=== PATIENT | female | born 1995 | race Caucasian/White ===

== ENCOUNTER 2018-05-09 21:45 | Emergency (ER) | payer SELFPAY ==
--- NOTE | 2018-05-10 04:43 | Emergency Room Report ---
History of Present Illness General Chief Complaint: To Be Triaged Medical Decision Making Diagnostic Impression: Primary Impression: gen eval ER Course Patient left prior to triage Status: unchanged Disposition: LEFT W/OUT BEING SEEN Condition: Stable Referrals: NOT CHOSEN IPA/,REFERRING (PCP) Garcia Sanon MD May 10, 2018 04:43
== END 2018-05-09 22:15 | disposition left against medical advice (07) ==
LOC: EMR 22:10
DX: Z53.21 Procedure and treatment not carried out due to patient leaving prior to being seen by health care provider (principal)

== ENCOUNTER 2018-10-26 12:36 | Emergency (ER) | payer SELFPAY ==
--- NOTE | 2018-10-26 12:45 | NUR ---
ED Nurse Note: Registration personnel informed this RN that patient is still deciding if she needs to be seen by ERMD.
--- NOTE | 2018-10-26 12:59 | NUR ---
ED Nurse Note: Patient left without being triaged.
== END 2018-10-26 12:59 | disposition left against medical advice (07) ==
LOC: EMR 12:38
DX: Z53.21 Procedure and treatment not carried out due to patient leaving prior to being seen by health care provider (principal)